=== PATIENT | male | born 1995 | race African-American/Black ===

== ENCOUNTER 2018-01-01 11:39 | Emergency (ER) | payer OTHER ==
[~2018-01-01] VITALS: Ht 175.3 cm; Wt 73.5 kg
[2018-01-01 12:03] LABS: URINE BILIRUBIN NEGATIVE (Negative); URINE BLOOD NEGATIVE (Negative); URINE CLARITY CLEAR; URINE COLOR YELLOW; URINE GLUCOSE-RANDOM* NEGATIVE (Negative); URINE KETONES NEGATIVE (Negative); URINE NITRITE-REFLEX NEGATIVE (Negative); URINE PROTEIN (DIPSTICK) NEGATIVE (Negative); URINE UROBILINOGEN 0.2 E.U./dl (0.2-1.0)
[2018-01-01 12:05] LABS: URINE LEUKOCYTES-REFLEX 2+ (Negative)
[2018-01-01 12:19] LABS: BACTERIA-REFLEX 1-9 Few /HPF (None Seen); CASTS None Seen /LPF (None Seen); CRYSTALS None Seen /LPF (None Seen); SQUAMOUS None Seen /LPF (0-3)
[2018-01-01 12:20] LABS: URINE RBC None Seen /HPF (0-2)
[2018-01-01 13:05] VITALS: BP 122/66
== END 2018-01-01 13:06 | disposition home or self-care (01) ==
LOC: ER 11:39
PROVIDERS: Physician Assistant
DX: Z20.2 Contact with and (suspected) exposure to infections with a predominantly sexual mode of transmission (principal); N34.2 Other urethritis; Z88.5 Allergy status to narcotic agent